=== PATIENT | female | born 1975 | race African-American/Black ===

== ENCOUNTER 2017-10-26 14:58 | Emergency (ER) | payer BC, OTHER, SELFPAY ==
[2017-10-26] MEDS ORDERED: Dexamethasone 4 mg/ml Vial ONE (16:13)
[2017-10-26] MEDS ORDERED: Acetaminophen 500 MG TAB ONE (16:13)
[2017-10-26] MEDS ORDERED: Ibuprofen 800 MG TAB ONE (16:13)
[2017-10-26] MEDS ORDERED: Dexamethasone 4 MG TAB ONE (16:14)
== END 2017-10-26 16:32 | disposition home or self-care (01) ==
LOC: MADERS 14:58
DX: M54.2 Cervicalgia (principal); J45.909 Unspecified asthma, uncomplicated; G47.30 Sleep apnea, unspecified
CPT/HCPCS: 99283; J1100; J8540

== ENCOUNTER 2018-05-29 17:04 | Emergency (ER) | payer SELFPAY ==
--- NOTE | 2018-05-29 19:04 | RAD ---
CHEST TWO VIEWS: 05/29/18 COMPARISON: 05/22/16. HISTORY: Pain. FINDINGS: Normal cardiac silhouette. The pulmonary vessels and hilum are normal. Costophrenic angles are clear. Patchy interstitial opacities. No consolidation or mass. No pneumothorax or osseous abnormalities. IMPRESSION: Patchy interstitial opacities. Correlate for edema or infiltrate. POS: [facility]
[2018-05-29] MEDS ORDERED: HYDROcodone/Acetaminophen 5/325 mg Tablet ONE (19:13)
== END 2018-05-29 19:24 | disposition home or self-care (01) ==
LOC: MADERS 17:04
DX: J18.9 Pneumonia, unspecified organism (principal); J45.909 Unspecified asthma, uncomplicated; G47.30 Sleep apnea, unspecified; D64.9 Anemia, unspecified
CPT/HCPCS: 71046

== ENCOUNTER 2018-09-22 15:39 | Emergency (ER) | payer SELFPAY ==
[2018-09-22 16:54] LABS: Bilirubin Negative (Negative); Blood, Urine Trace (Negative); Clarity Clear (Clear); Glucose, Urine (Dipstick) Negative (Negative); Leukocyte Negative (Negative); Nitrite Negative (Negative); Protein, Urine (Dipstick) Negative (Neg-Trace); Specific Gravity, Urine 1.025 (1.005-1.030); pH, Urine 6.5 (5.0-9.0)
[2018-09-22 17:02] LABS: ALT (SGPT) 11 U/L (8-55); AST (SGOT) 12 U/L (5-34); Albumin 3.6 g/dL (3.5-5.0); Alkaline Phosphatase 66 U/L (40-150); Anion Gap 13 mmol/L (10-20); BUN (Urea Nitrogen) 8 mg/dL (7.0-18.7); Bilirubin, Total 0.3 mg/dL (0.2-1.2); Calc. Creatinine Clearance 0 mL/min (70-130); Calcium 8.8 mg/dL (7.8-10.44); Carbon Dioxide 22 mmol/L (22-29); Chloride 109 mmol/L (98-107); Estimated GFR-MDRD 90; Globulin 3.4 g/dL (2.4-3.5); Glucose 92 mg/dL (70-105); Lipase 34 U/L (8-78); Potassium 3.8 mmol/L (3.5-5.1); Sodium 140 mmol/L (136-145)
[2018-09-22 17:08] LABS: Band 1 % (5-11); Eosinophils 2 % (0-10); Hemoglobin 11.5 g/dL (12.0-16.0); Lymphocytes 33 % (21-51); MDiff Complete? YES; Mean Corpuscular HGB CONC 31.8 g/dL (32.0-36.0); Mean Corpuscular Hemoglobin 28.7 pg (27.0-31.0); Mean Corpuscular Volume 90.2 fL (78.0-98.0); Mean Platelet Volume 7.8 fL (7.4-10.4); Metamyelocyte 2 % (0-0); Monocytes 7 % (0-10); Myelocyte 1 % (0-0); Neutrophil 35 % (42-75); PLT Morphology Comment Appears Adequate; Platelet Count 272 thou/uL (130-400); RBC Distribution Width 11.7 % (11.5-14.5); Reactive Lymphocytes 19 % (0-10); Red Blood Cell (RBC) Count 4.01 mill/uL (4.20-5.40); White Blood Cell (WBC) Count 6.2 thou/uL (4.8-10.8)
[2018-09-22 17:11] LABS: Bacteria/HPF Rare-Few HPF (None Seen); WBC/HPF 0-3 HPF (0-3)
--- NOTE | 2018-09-22 18:12 | RAD ---
TWO VIEWS CHEST: 09/22/18 HISTORY: Chest pain. PA and lateral views of the chest is obtained on 09/22/18. Comparison made to previous exam from 05/29/18. Two views chest demonstrates the lungs to be well aerated. No evidence of active intrathoracic diseas e seen. No evidence of effusions, pneumonia or pneumothorax seen. IMPRESSION: Normal two views chest. POS: [facility]
== END 2018-09-22 17:26 | disposition home or self-care (01) ==
LOC: MADERS 15:39
DX: B34.9 Viral infection, unspecified (principal); R07.89 Other chest pain; G47.30 Sleep apnea, unspecified; D64.9 Anemia, unspecified; J45.909 Unspecified asthma, uncomplicated
CPT/HCPCS: 36415; 71046; 80053; 81003; 81015; 83690; 85025; 87804; 93005

== ENCOUNTER 2019-01-24 14:44 | Outpatient (CLI) | payer BC ==
--- NOTE | 2019-01-24 16:58 | RAD ---
FOUR VIEWS LEFT KNEE: Date: 01-24-19 History: Left knee pain and swelling on and off. No history of trauma. FINDINGS: There is no fracture or dislocation involving the left knee. No joint space narrowing is seen. There is suggestion of a joint effusion in a suprapatellar location. IMPRESSION: Joint effusion without evidence of an acute osseous abnormality. MRI may be helpful for further evalu ation. POS: [facility]
== END 2019-01-24 14:45 | disposition home or self-care (01) ==
LOC: MADRAD 14:44
PROVIDERS: ATTEND General Practice
DX: M25.461 Effusion, right knee (principal); M25.462 Effusion, left knee

== ENCOUNTER 2019-12-23 17:23 | Emergency (ER) | payer MEDICAID, SELFPAY ==
[2019-12-23] MEDS ORDERED: Ketorolac Tromethamine 30 MG/ML VIAL ONE (18:18)
[2019-12-23] MEDS ORDERED: Ondansetron ODT 4 MG TAB ONE (18:18)
--- NOTE | 2019-12-23 18:50 | RAD ---
TWO VIEWS CERVICAL SPINE: 12/23/19 COMPARISON: None. HISTORY: Neck pain. FINDINGS: Two views of the cervical spine shows normal height and alignment of the vertebral bodies without fra cture or subluxation. The intervertebral discs are narrowed at C5-6 and C6-7 with moderate surroundin g osteophytes. No prevertebral soft tissue swelling is seen. IMPRESSION: Degenerative changes of the cervical spine without acute osseous abnormality. POS: [facility]
== END 2019-12-23 19:41 | disposition home or self-care (01) ==
LOC: MADERS 17:23
DX: S43.422A Sprain of left rotator cuff capsule, initial encounter (principal); M54.12 Radiculopathy, cervical region; I10 Essential (primary) hypertension; J45.909 Unspecified asthma, uncomplicated; G47.30 Sleep apnea, unspecified; D64.9 Anemia, unspecified
CPT/HCPCS: 72040; 96372; J1885; Q0162

== ENCOUNTER 2019-12-27 21:31 | Emergency (ER) | payer SELFPAY ==
[2019-12-27] MEDS ORDERED: Sodium Chloride 0.9% 1,000 ML ONE (22:02)
[2019-12-27] MEDS ORDERED: Morphine 4 MG/ML VIAL ONE (22:02)
[2019-12-27] MEDS ORDERED: Ondansetron PF 4 MG/2 ML Vial ONE (22:02)
--- NOTE | 2019-12-27 22:07 | CT ---
CT Stone Protocol HISTORY: Right flank pain. COMPARISON: 09/30/2018 and 08/06/2016 studies. FINDINGS: The lung bases are clear. The liver, spleen, pancreas and gallbladder regions appear unremarkable given the limitations of a no ncontrast study. Small hiatal hernia is noted. Right and left adrenal glands are normal. A tiny lower pole right renal calculus is seen and a faint mid pole nonobstructing calculus is noted. Several punctate left renal calculi are seen with a larger 6 mm calculus in the upper pole region. Right-sided hydronephrosis and hydroureter noted the c ourse of the distal right ureter is very difficult to follow there are multiple phleboliths present it is difficult to definitely establish a distal right ureteral calculus. There is no significant per iaortic or mesenteric adenopathy. CT of pelvis performed with out contrast enhancement: The appendix is normal. No adenopathy, mass or free fluid. IMPRESSION: 1. Bilateral renal calculi. 2. Mild right-sided hydronephrosis and dilatation the proximal right ureter, the distal ureters very difficult to follow I do not see a definitive ureteral calculus but there are multiple phleboliths within the pelvis potentially one of these is a small calculus or the stone may have passed.
[2019-12-27 22:22] LABS: Bilirubin Small (Negative); Blood, Urine Large (Negative); Clarity Turbid (Clear); Glucose, Urine (Dipstick) Negative (Negative); Leukocyte Trace (Negative); Nitrite Negative (Negative); Protein, Urine (Dipstick) 100 mg/dL (Neg-Trace); Urobilinogen 0.2 mg/dL (Less than 2)
[2019-12-27 22:24] LABS: RBC/HPF Greater than 50 HPF (0-3)
[2019-12-27 22:27] LABS: Bacteria/HPF 1+ HPF (None Seen); Squamous Epithelial 21-50 HPF (0-3)
[2019-12-27 22:51] LABS: Band 5 % (5-11); Hemoglobin 11.2 g/dL (12.0-16.0); Lymphocytes 32 % (21-51); MDiff Complete? YES; Mean Corpuscular HGB CONC 32.5 g/dL (32.0-36.0); Mean Corpuscular Hemoglobin 29.4 pg (27.0-31.0); Mean Corpuscular Volume 90.7 fL (78.0-98.0); Mean Platelet Volume 8.1 fL (7.4-10.4); Monocytes 10 % (0-10); Neutrophil 53 % (42-75); Platelet Count 242 thou/uL (130-400); Platelet Morphology Comment Appears Adequate; RBC Distribution Width 11.6 % (11.5-14.5); RBC Morphology Normal; Red Blood Cell (RBC) Count 3.79 mill/uL (4.20-5.40); White Blood Cell (WBC) Count 9.5 thou/uL (4.8-10.8)
[2019-12-27 22:55] LABS: Anion Gap 13 mmol/L (10-20); BUN (Urea Nitrogen) 10 mg/dL (7.0-18.7); Calc. Creatinine Clearance 0 mL/min (70-130); Calcium 8.6 mg/dL (7.8-10.44); Carbon Dioxide 22 mmol/L (22-29); Chloride 106 mmol/L (98-107); Estimated GFR-MDRD 68; Glucose 91 mg/dL (70-105); Potassium 3.8 mmol/L (3.5-5.1); Sodium 137 mmol/L (136-145)
[2019-12-27] MEDS ORDERED: HYDROcodone/Acetaminophen 5/325 mg Tablet ONE (23:06)
[2019-12-27] MEDS ORDERED: Ketorolac Tromethamine 30 MG/ML VIAL ONE (23:08)
[2019-12-27] MEDS ORDERED: Acetaminophen 325 MG TAB ONE (23:08)
[2019-12-27] MEDS ORDERED: Tamsulosin HCl 0.4 MG CAP ONE (23:08)
[2019-12-27] MEDS ORDERED: Promethazine 25 MG TAB ONE (23:08)
== END 2019-12-27 23:45 | disposition home or self-care (01) ==
LOC: MADERS 21:31
DX: N13.2 Hydronephrosis with renal and ureteral calculous obstruction (principal); R11.2 Nausea with vomiting, unspecified; J45.909 Unspecified asthma, uncomplicated; G47.30 Sleep apnea, unspecified; D64.9 Anemia, unspecified
CPT/HCPCS: 36415; 74176; 80048; 81003; 81015; 85025; 87086; 96361; 96374; 96375; J1885; J2270; J2405; J7050; Q0169

== ENCOUNTER 2019-12-29 09:11 | Emergency (ER) | payer SELFPAY ==
[2019-12-29 10:08] LABS: Bilirubin Negative (Negative); Blood, Urine Moderate (Negative); Clarity Hazy (Clear); Glucose, Urine (Dipstick) Negative (Negative); Leukocyte Negative (Negative); Nitrite Negative (Negative); Protein, Urine (Dipstick) Negative (Neg-Trace); Urobilinogen 0.2 mg/dL (Less than 2)
[2019-12-29 10:14] LABS: Bacteria/HPF Rare-Few HPF (None Seen); WBC/HPF 0-3 HPF (0-3)
--- NOTE | 2019-12-29 10:30 | ULT ---
EXAM: US Renal Rt Unilateral DATE: 12/29/2019 9:51 AM INDICATION: History of right renal stones and right-sided hydronephrosis COMPARISON: CT abdomen pelvis without contrast dated December 27, 2019 FINDING: There is mild right-sided hydronephrosis still present. The right kidney measures 12.4 x 5. 9 x 6.4 cm. Prevoid bladder volume was 49.8 cc. Postvoid bladder volume was 5.4 cc. IMPRESSION:Persistent mild right hydronephrosis.
[2019-12-29] MEDS ORDERED: Sodium Chloride 0.9% 1,000 ML ONE (10:33)
[2019-12-29] MEDS ORDERED: Morphine 4 MG/ML VIAL ONE (10:33)
[2019-12-29] MEDS ORDERED: Ondansetron PF 4 MG/2 ML Vial ONE (10:33)
[2019-12-29 10:49] LABS: Anion Gap 12 mmol/L (10-20); BUN (Urea Nitrogen) 11 mg/dL (7.0-18.7); Calc. Creatinine Clearance 0 mL/min (70-130); Calcium 8.8 mg/dL (7.8-10.44); Carbon Dioxide 24 mmol/L (22-29); Chloride 107 mmol/L (98-107); Estimated GFR-MDRD 80; Glucose 82 mg/dL (70-105); Potassium 3.8 mmol/L (3.5-5.1); Sodium 139 mmol/L (136-145)
[2019-12-29 10:51] LABS: Band 1 % (5-11); Hemoglobin 10.8 g/dL (12.0-16.0); Lymphocytes 15 % (21-51); MDiff Complete? YES; Mean Corpuscular HGB CONC 31.2 g/dL (32.0-36.0); Mean Corpuscular Hemoglobin 28.5 pg (27.0-31.0); Mean Corpuscular Volume 91.3 fL (78.0-98.0); Mean Platelet Volume 8.1 fL (7.4-10.4); Metamyelocyte 1 % (0-0); Monocytes 7 % (0-10); Neutrophil 62 % (42-75); Platelet Count 256 thou/uL (130-400); Platelet Morphology Comment Appears Adequate; RBC Distribution Width 11.7 % (11.5-14.5); Reactive Lymphocytes 14 % (0-10); White Blood Cell (WBC) Count 9.1 thou/uL (4.8-10.8)
--- NOTE | 2019-12-29 12:03 | CT ---
CT ABDOMEN NONCONTRAST CT PELVIS NONCONTRAST: (Urolithiasis protocol) DATE: 12/29/2019 HISTORY: 44-year-old female with obstructive uropathy and calculus of kidney COMPARISON: 12/27/2019 TECHNIQUE: IV injection of iodinated contrast media: None Oral contrast media: None FINDINGS: Other than for urolithiasis, the lack of IV and oral contrast limits the evaluation. There is a 10 x 5 x 9 mm calculus at a left renal upper pole calyx. There are multiple bilateral tiny punctate renal calculi in the upper, mid, and lower pole calyces. M ost of them are on the order of 1 mm in size, and are therefore best visualized on the coronal reconstructions rather than on the axial images. Again noted is the mild dilation of right calyces. This has not worsened. It may be minimally improve d. The right nephromegaly, right renal parenchymal edema, and the right perirenal edema, have minimally improved. No calculus is visualized in the ureters. However, because of the very large number of phleboliths throughout the pelvis, a distal ureteral tigist culus or a calculus at the UVJ, could easily be missed. No calculus within the urinary bladder. Within the limitations of a noncontrast scan, no abnormality is identified involving urinary bladder, appendix, abdominal aorta, pancreas, adrenals, liver, or spleen. No small bowel dilation. Small amount of free fluid in the cul-de-sac, greater than on the previous CT. IMPRESSION: 1. Evidence for right obstructive uropathy. 2. Mild right hydronephrosis may or may not have minimally improved. 3. The right perirenal edema has minimally improved. 4. Although an obstructing ureteral calculus is not definitely identified, the extremely large number of phleboliths could result in an easily missed tiny calculus in the distal ureter or UVJ. 5. Bilateral nephrolithiasis. Most of the renal calculi are on the order of 1 mm, and difficult to vi sualize on axial images. 6. There is a 10 mm calculus in the left kidney
--- NOTE | 2019-12-29 16:53 | RAD ---
Intravenous urogram: DATE: 12/29/2019 HISTORY: 44-year-old female with right sided abdominal pain. FINDINGS: The approximately 10 x 5 mm calculus at the left renal upper pole demonstrated on the recent CT, is v isible on the [facility] radiograph. Following IV contrast injection, bilaterally symmetrical nephrograms are noted on the first postcontr ast image obtained which is at 1 minute. There is excretion into bilateral renal collecting systems on the 5 minute image. The right renal collecting system is mild-moderately dilated. The right ureter is mildly dilated. The distal portion of the right ureter is not visualized on the 10 minute image, where there is an abrupt cut off of the contrast filled right ureter. This could be due to the particular stage of ureteral peristalsis when the radiographic image was obtained, but an obstructing lesion at the distal right ureter, such as transitional cell carcinoma, is a possibility. The distal left ureter is visualized filled with contrast, and there is even a left ureteral jet visualized in the bladder. There is no left-sided hydronephrosis. IMPRESSION: 1. Partial distal right ureteral obstruction. Possibility of urothelial carcinoma in the distal right ureter. Consider retrograde pyelogram. 2. Nephrolithiasis, including a 10 x 5 mm left renal upper pole calculus.
== END 2019-12-29 18:52 | disposition short-term general hospital (02) ==
LOC: MADERS 09:11
DX: N13.2 Hydronephrosis with renal and ureteral calculous obstruction (principal); R11.10 Vomiting, unspecified; D64.9 Anemia, unspecified; J45.909 Unspecified asthma, uncomplicated; Z79.899 Other long term (current) drug therapy
CPT/HCPCS: 74176; 74410; 76775; 80048; 81003; 81015; 85025; 96361; 96374; 96375; J2270; J2405; J7050

== ENCOUNTER 2020-02-11 14:52 | Emergency (ER) | payer BC, SELFPAY ==
[2020-02-11 16:42] LABS: Bilirubin Negative (Negative); Blood, Urine Negative (Negative); Clarity Clear (Clear); Glucose, Urine (Dipstick) Negative (Negative); Leukocyte Negative (Negative); Nitrite Negative (Negative); Protein, Urine (Dipstick) Negative (Neg-Trace); Urobilinogen 0.2 mg/dL (Less than 2)
[2020-02-11] MEDS ORDERED: Sodium Chloride 0.9% 1,000 ML ONE (16:46)
[2020-02-11] MEDS ORDERED: Pantoprazole 40 MG VIAL ONE ×2 (16:46)
[2020-02-11] MEDS ORDERED: Ketorolac Tromethamine 30 MG/ML VIAL ONE (16:46)
--- NOTE | 2020-02-11 17:09 | CT ---
CT of abdomen and pelvis: 02/11/2020 COMPARISON: 12/29/2019 HISTORY: Left flank pain for 2 weeks TECHNIQUE: Axial CT imaging at 5 mm intervals from lung bases through pubic symphysis without contras t. Coronal reformatted imaging obtained. FINDINGS: Lack of contrast media limits assessment of the viscera, bowel, vascular structures, and fo r lymphadenopathy. The visualized lung bases appear grossly unremarkable. No free intraperitoneal air or fluid is seen. The liver, gallbladder, spleen, pancreas, and adrenal glands are grossly unremarkable. Numerous punctate renal calculi are noted on the right. No evidence for obstructive uropathy is seen on the right. There are numerous calcifications within the pelvis, as seen on the prior examination. There are scattered punctate stones within the left kidney. There is also a 1.2 cm stone within the u pper pole of the left kidney, not significantly changed. No evidence for hydronephrosis or obstructive uropathy is appreciated on the left. Urinary bladder is decompressed and poorly evaluated . Limited assessment of the bowel without oral contrast media demonstrates no evidence for inflammatory change or obstruction. The appendix is unremarkable. Review of the osseous structures demonstrates no worrisome lytic or blastic bone lesion. There is lower lumbar spine degenerative change present. IMPRESSION: Bilateral nonobstructing renal calculi. No evidence for obstructive uropathy is appreciat ed on either side..
[2020-02-11 17:20] LABS: #Basophils 0.2 thou/uL (0.0-0.2); #Eosinphils 0.1 thou/uL (0.0-0.7); #Lymphocytes 2.8 thou/uL (1.20-3.40); #Monocytes 0.7 thou/uL (0.11-0.59); #Neutrophils 3.3 thou/uL (1.40-6.50); %Basophils 2.8 % (0.0-1.0); %Eosinophils 1.3 % (0.0-10.0); %Lymphocytes 39.2 % (21.0-51.0); %Monocytes 10.4 % (0.0-10.0); %Neutrophils 46.3 % (42.0-75.0); Hemoglobin 12.3 g/dL (12.0-16.0); Mean Corpuscular HGB CONC 30.7 g/dL (32.0-36.0); Mean Corpuscular Hemoglobin 27.9 pg (27.0-31.0); Mean Corpuscular Volume 90.9 fL (78.0-98.0); Mean Platelet Volume 8.9 fL (7.4-10.4); Platelet Count 282 thou/uL (130-400); RBC Distribution Width 11.9 % (11.5-14.5); White Blood Cell (WBC) Count 7.1 thou/uL (4.8-10.8)
[2020-02-11 17:35] LABS: ALT (SGPT) 15 U/L (8-55); AST (SGOT) 14 U/L (5-34); Albumin 3.9 g/dL (3.5-5.0); Alkaline Phosphatase 68 U/L (40-110); Anion Gap 14 mmol/L (10-20); BUN (Urea Nitrogen) 9 mg/dL (7.0-18.7); Bilirubin, Total 0.3 mg/dL (0.2-1.2); Calc. Creatinine Clearance 0 mL/min (70-130); Carbon Dioxide 23 mmol/L (22-29); Chloride 108 mmol/L (98-107); Estimated GFR-MDRD 86; Globulin 3.4 g/dL (2.4-3.5); Glucose 90 mg/dL (70-105); Lipase 21 U/L (8-78); Potassium 3.9 mmol/L (3.5-5.1); Protein, Total 7.3 g/dL (6.0-8.3); Sodium 141 mmol/L (136-145)
[2020-02-11 17:59] LABS: Troponin I Less than 0.010 ng/mL (< 0.028)
== END 2020-02-11 18:15 | disposition home or self-care (01) ==
LOC: MADERS 14:52
DX: K21.9 Gastro-esophageal reflux disease without esophagitis (principal); G47.30 Sleep apnea, unspecified; D64.9 Anemia, unspecified; Z79.899 Other long term (current) drug therapy
CPT/HCPCS: 36415; 74176; 80053; 81003; 83605; 83690; 84484; 85025; 93005; 96361; 96374; 96375; C9113; J1885; J7050

== ENCOUNTER 2020-02-18 09:40 | Emergency (ER) | payer SELFPAY ==
[2020-02-18 11:20] LABS: ALT (SGPT) 12 U/L (8-55); AST (SGOT) 10 U/L (5-34); Albumin 3.9 g/dL (3.5-5.0); Alkaline Phosphatase 63 U/L (40-110); Anion Gap 13 mmol/L (10-20); BUN (Urea Nitrogen) 8 mg/dL (7.0-18.7); Bilirubin, Total 0.3 mg/dL (0.2-1.2); Calc. Creatinine Clearance 0 mL/min (70-130); Calcium 9.2 mg/dL (7.8-10.44); Carbon Dioxide 26 mmol/L (22-29); Chloride 105 mmol/L (98-107); Estimated GFR-MDRD 89; Globulin 3.5 g/dL (2.4-3.5); Glucose 91 mg/dL (70-105); Lipase 14 U/L (8-78); Potassium 3.9 mmol/L (3.5-5.1); Protein, Total 7.4 g/dL (6.0-8.3); Sodium 140 mmol/L (136-145)
[2020-02-18 11:39] LABS: Band 1 % (5-11); Eosinophils 2 % (0-10); Hemoglobin 12.1 g/dL (12.0-16.0); Lymphocytes 28 % (21-51); MDiff Complete? YES; Mean Corpuscular Hemoglobin 28.5 pg (27.0-31.0); Mean Platelet Volume 8.4 fL (7.4-10.4); Monocytes 10 % (0-10); Neutrophil 58 % (42-75); Platelet Count 269 thou/uL (130-400); Platelet Morphology Comment Appears Adequate; RBC Distribution Width 11.9 % (11.5-14.5); Red Blood Cell (RBC) Count 4.23 mill/uL (4.20-5.40); White Blood Cell (WBC) Count 6.6 thou/uL (4.8-10.8)
--- NOTE | 2020-02-18 12:23 | RAD ---
EXAM: Chest PA and lateral: HISTORY: Chest pain COMPARISON: 09/22/2018, 09/18/2019 FINDINGS: Heart: Normal cardiac silhouette Aorta: Unremarkable Pulmonary vessels: Normal Costophrenic angles: Costophrenic angles are clear. Lungs: No consolidation or masses. Pneumothorax: No pneumothorax Osseous structures: No osseous abnormalities IMPRESSION: No acute cardiopulmonary process.
== END 2020-02-18 12:48 | disposition home or self-care (01) ==
LOC: MADERS 09:40
DX: M62.830 Muscle spasm of back (principal); J45.909 Unspecified asthma, uncomplicated; Z79.899 Other long term (current) drug therapy
CPT/HCPCS: 36415; 71046; 80053; 83690; 84484; 85025; 85379; 93005

== ENCOUNTER 2020-11-02 17:11 | Emergency (ER) | payer BC, SELFPAY ==
[2020-11-02] MEDS ORDERED: Ketorolac Tromethamine 30 MG/ML VIAL ONE (18:42)
[2020-11-02 18:48] LABS: Bilirubin Negative (Negative); Blood, Urine Trace (Negative); Glucose, Urine (Dipstick) Negative (Negative); Ketone, Urine Negative (Negative); Leukocyte Negative (Negative); Nitrite Negative (Negative); Protein, Urine (Dipstick) Negative (Neg-Trace); pH, Urine 5.5 (5.0-9.0)
[2020-11-02 18:49] LABS: Clarity Hazy (Clear); Specific Gravity, Urine 1.021 (1.002-1.036)
[2020-11-02 18:52] LABS: Bacteria/HPF Rare-Few HPF (None Seen); Mucous/LPF 1+ LPF (<2+); RBC/HPF 0-3 HPF (0-3); WBC/HPF None Seen HPF (0-3)
[2020-11-02 18:59] LABS: Hemoglobin 11.8 g/dL (12.0-16.0); Mean Corpuscular HGB CONC 32.2 g/dL (32.0-36.0); Mean Corpuscular Hemoglobin 29.2 pg (27.0-31.0); Mean Corpuscular Volume 90.5 fL (78.0-98.0); Mean Platelet Volume 8.4 fL (7.4-10.4); Platelet Count 268 thou/uL (130-400); RBC Distribution Width 11.6 % (11.5-14.5); Red Blood Cell (RBC) Count 4.04 mill/uL (4.20-5.40); White Blood Cell (WBC) Count 8.1 thou/uL (4.8-10.8)
[2020-11-02 19:00] LABS: ALT (SGPT) 12 U/L (8-55); AST (SGOT) 14 U/L (5-34); Albumin 3.7 g/dL (3.5-5.0); Alkaline Phosphatase 67 U/L (40-110); Anion Gap 13 mmol/L (10-20); BUN (Urea Nitrogen) 12 mg/dL (7.0-18.7); Bilirubin, Total 0.2 mg/dL (0.2-1.2); Calc. Creatinine Clearance 0 mL/min (70-130); Carbon Dioxide 25 mmol/L (22-29); Chloride 106 mmol/L (98-107); Globulin 3.5 g/dL (2.4-3.5); Glucose 94 mg/dL (70-105); Potassium 3.5 mmol/L (3.5-5.1); Protein, Total 7.2 g/dL (6.0-8.3); Sodium 140 mmol/L (136-145)
[2020-11-02 19:02] LABS: Pregnancy Test - Urine (BHCG) Negative (Negative); Pregu Control Background? CLEAR/WHITE (CLR/WHITE); Pregu Control Bar Appear? YES (CONTROL BAR); Specific Gravity 1.021 (1.002-1.036)
[2020-11-02 19:06] LABS: #Neutrophils 3.4 thou/uL (1.40-6.50); %Basophils 3.5 % (0.0-1.0); %Eosinophils 1.3 % (0.0-10.0); %Lymphocytes 42.1 % (21.0-51.0); %Monocytes 10.5 % (0.0-10.0); %Neutrophils 42.6 % (42.0-75.0)
[2020-11-02 19:07] LABS: #Basophils 0.3 thou/uL (0.0-0.2); #Eosinphils 0.1 thou/uL (0.0-0.7); #Lymphocytes 3.4 thou/uL (1.20-3.40); #Monocytes 0.9 thou/uL (0.11-0.59)
--- NOTE | 2020-11-02 19:29 | CT ---
Exam: Abdomen CT without contrast Pelvic CT without contrast HISTORY: Mid right posterior flank pain. Left flank pain. COMPARISON: 02/11/2020 FINDINGS: Abdomen CT: Lung bases:Clear Heart size: Normal heart size. No significant pericardial fluid Aorta: Normal caliber. No periaortic fat stranding Solid organs: Limited evaluation by the absence of IV contrast. Grossly no solid organ abnormality Lymph nodes: No gastrohepatic, retrocrural or periportal lymphadenopathy Gallbladder: Contracted Mesentery: No mass, lymphadenopathy, free air or free fluid Kidneys: Bilateral nonobstructing intrarenal calculi. There is also a hyperdensity involving the left and right renal pyramids. Largest calculus in the left intrarenal collecting system measures 1.1 cm. Bilaterally no obstructive uropathy. Alimentary canal: Limited evaluation by the lack of oral contrast. Ingested material in the stomach. Normal caliber small bowel loops. Normal ileocecal junction. Normal caliber appendix. Decompressed colon with scattered fecal material. CT PELVIS: No mass, adenopathy, free air or free fluid. Surgically absent uterus Urinary bladder: Unremarkable. Osseous structures: No lytic or blastic lesions IMPRESSION: 1. No evidence of obstructive uropathy 2. Bilateral nonobstructing intrarenal calculi. 3. Normal caliber.
== END 2020-11-02 19:48 | disposition home or self-care (01) ==
LOC: MADERS 17:11
DX: M54.5 Low back pain (principal); J45.909 Unspecified asthma, uncomplicated; G47.30 Sleep apnea, unspecified; D64.9 Anemia, unspecified; Z79.899 Other long term (current) drug therapy
CPT/HCPCS: 36415; 74176; 80053; 81003; 81015; 81025; 85025; 96372; J1885

== ENCOUNTER 2020-11-06 23:11 | Emergency (ER) | payer MEDICAID, SELFPAY ==
[2020-11-06 23:43] LABS: Bilirubin Negative (Negative); Blood, Urine Small (Negative); Clarity Clear (Clear); Glucose, Urine (Dipstick) Negative (Negative); Ketone, Urine Negative (Negative); Leukocyte Negative (Negative); Nitrite Negative (Negative); Protein, Urine (Dipstick) Negative (Neg-Trace); Urobilinogen 0.2 mg/dL (Less than 2); pH, Urine 5.5 (5.0-9.0)
[2020-11-06 23:51] LABS: RBC/HPF 0-3 HPF (0-3); Squamous Epithelial 0-3 HPF (0-3); Transitional Epithelial 0-3 HPF (None Seen); WBC/HPF 0-3 HPF (0-3)
[2020-11-06 23:52] LABS: Bacteria/HPF Rare-Few HPF (None Seen); Mucous/LPF 2+ LPF (<2+)
--- NOTE | 2020-11-07 07:33 | CT ---
PRELIMINARY REPORT/[facility]/EMERGENCY AFTER HOURS PROCEDURE: EXAM: CT Abdomen and Pelvis Without Intravenous Contrast CLINICAL HISTORY: HX OF STONES RT SIDE PAIN TECHNIQUE: Axial computed tomography images of the abdomen and pelvis without intravenous contrast. CONTRAST: None. COMPARISON: None provided. FINDINGS: LUNG BASES: No basilar airspace consolidation or pleural effusion. LIVER: Unremarkable. GALLBLADDER AND BILE DUCTS: Unremarkable. No calcified stone. No ductal dilation. PANCREAS: Unremarkable. SPLEEN: Unremarkable. ADRENAL GLANDS: Unremarkable. KIDNEYS, URETERS, AND BLADDER: Bilateral renal stones are present, nonobstructive. Largest is seen wi thin the upper pole of the left kidney measuring approximately 8 x 4 mm. No discrete ureteral stone identified. However, numerous calcifications are noted within the pelvis, which are most likely phleb oliths, and may obscure a tiny stone in the distal ureters. No urinary tract dilatation. No bladder stones visualized. STOMACH AND BOWEL: No obstruction. No wall thickening. No CT evidence of colitis or acute diverticuli tis. APPENDIX: No CT evidence for appendicitis. PERITONEUM: No free fluid. No free air. LYMPH NODES: No lymphadenopathy. REPRODUCTIVE: Patient is status post hysterectomy. VASCULATURE: No aortic aneurysm. ABDOMINAL WALL AND SOFT TISSUES: Unremarkable. BONES: No acute or aggressive skeletal abnormalities. Degenerative changes are noted predominantly at L5-S1. IMPRESSION: Bilateral nephrolithiasis. No urinary tract dilatation. Numerous phleboliths within the pelvis may obscure a small distal ureterolith. No other acute intra-abdominal or pelvic abnormality. ELECTRONICALLY SIGNED BY: Dhruv Gil DO Nov 07, 2020 12:43:24 AM BEDSPREAD INSPECTOR FINAL REPORT CT OF THE ABD AND PELVIS WITHOUT CONTRAST: DATE: 11/07/2020. COMPARISON: 11/02/2020. HISTORY: History of renal stone disease, right-sided pain radiating anteriorly. FINDINGS: I agree with the preliminary report. The lack of contrast limits assessment of the viscera, bowel, v ascular structures, and evaluation for lymphadenopathy. The imaged lung bases are unremarkable. No free intraperitoneal air or fluid is seen. Limited assessm ent of the liver, gallbladder, and spleen unremarkable. Pancreas and adrenal glands appear grossly unremarkable. Multiple stable nonobstructing intrarenal calculi are noted. The largest stone on the l eft is in the mid pole/upper pole region and measures 9 mm. Numerous additional punctate calculi are noted bilaterally, right more numerous than left. No evidence for hydronephrosis or obstructive u ropathy. Numerous pelvic calcifications suggest phleboliths, which could obscure a distal ureteral stone. Limited evaluation of the bowel without contrast media demonstrates no evidence for inflammatory ruiz ge or obstruction. There is a small fat-containing umbilical hernia present. Appendix is grossly unremarkable. There is degenerative change within the lower lumbar spine with disc space narrowing and bilateral fa cet hypertrophy at the L5-S1 level and to a lesser degree, the L4-5 level. IMPRESSION: Intrarenal calculi with no evidence for obstructive uropathy. Transcribed Date/Time: 11/07/2020 7:52 AM
== END 2020-11-07 01:30 | disposition home or self-care (01) ==
LOC: MADERS 23:11
DX: N20.2 Calculus of kidney with calculus of ureter (principal); M19.90 Unspecified osteoarthritis, unspecified site; J45.909 Unspecified asthma, uncomplicated; Z79.899 Other long term (current) drug therapy
CPT/HCPCS: 74176; 81003; 81015

== ENCOUNTER 2020-12-25 09:54 | Emergency (ER) | payer SELFPAY ==
[2020-12-25 10:52] LABS: Bilirubin Negative (Negative); Blood, Urine Small (Negative); Clarity Clear (Clear); Glucose, Urine (Dipstick) Negative (Negative); Ketone, Urine 15 mg/dL (Negative); Leukocyte Negative (Negative); Nitrite Negative (Negative); Protein, Urine (Dipstick) Negative (Neg-Trace); Urobilinogen 0.2 mg/dL (Less than 2)
[2020-12-25 10:59] LABS: Bacteria/HPF Rare-Few HPF (None Seen); WBC/HPF 0-3 HPF (0-3)
[2020-12-25 11:13] LABS: ALT (SGPT) 10 U/L (8-55); AST (SGOT) 14 U/L (5-34); Alkaline Phosphatase 66 U/L (40-110); Anion Gap 13 mmol/L (10-20); BUN (Urea Nitrogen) 12 mg/dL (7.0-18.7); Bilirubin, Total 0.4 mg/dL (0.2-1.2); Calc. Creatinine Clearance 0 mL/min (70-130); Calcium 8.9 mg/dL (7.8-10.44); Carbon Dioxide 28 mmol/L (22-29); Chloride 103 mmol/L (98-107); Globulin 3.8 g/dL (2.4-3.5); Glucose 79 mg/dL (70-105); Lipase 14 U/L (8-78); Potassium 3.7 mmol/L (3.5-5.1); Protein, Total 7.8 g/dL (6.0-8.3); Sodium 140 mmol/L (136-145)
[2020-12-25 11:27] LABS: Eosinophils 1 % (0-10); Hemoglobin 12.3 g/dL (12.0-16.0); Hypochromia SLIGHT = 6-15 cells (100X) (0-5/hpf); Lymphocytes 39 % (21-51); MDiff Complete? YES; Mean Corpuscular HGB CONC 32.3 g/dL (32.0-36.0); Mean Corpuscular Hemoglobin 28.9 pg (27.0-31.0); Mean Corpuscular Volume 89.4 fL (78.0-98.0); Mean Platelet Volume 8.2 fL (7.4-10.4); Monocytes 10 % (0-10); Neutrophil 50 % (42-75); Platelet Count 279 thou/uL (130-400); Platelet Morphology Comment Appears Adequate; Red Blood Cell (RBC) Count 4.26 mill/uL (4.20-5.40); White Blood Cell (WBC) Count 5.1 thou/uL (4.8-10.8)
[2020-12-25] MEDS ORDERED: Ketorolac Tromethamine 30 MG/ML VIAL ONE (11:50)
== END 2020-12-25 12:20 | disposition home or self-care (01) ==
LOC: MADERS 09:54
DX: M54.5 Low back pain (principal); M19.90 Unspecified osteoarthritis, unspecified site; J45.909 Unspecified asthma, uncomplicated; Z87.442 Personal history of urinary calculi; Z79.899 Other long term (current) drug therapy
CPT/HCPCS: 36415; 80053; 81003; 81015; 83690; 85025; 96372; 99283; J1885

== ENCOUNTER 2021-06-16 08:02 | Emergency (ER) | payer BC, MEDICAID | END 2021-06-16 08:40 | disposition home or self-care (01) | LOC: MADERS 08:02 | DX: M54.5 Low back pain (principal); M19.90 Unspecified osteoarthritis, unspecified site; J45.909 Unspecified asthma, uncomplicated; Z87.891 Personal history of nicotine dependence; Z87.442 Personal history of urinary calculi | CPT/HCPCS: 99281 ==

== ENCOUNTER 2023-02-10 10:34 | Outpatient (CLI) | payer BC, MEDICAID, SELFPAY | END 2023-02-10 10:35 | disposition home or self-care (01) | LOC: MADRAD 10:34 | PROVIDERS: ATTEND Registered Nurse | DX: Z00.00 Encounter for general adult medical examination without abnormal findings (principal); M54.2 Cervicalgia; R05.9 Cough, unspecified; K21.9 Gastro-esophageal reflux disease without esophagitis; M47.812 Spondylosis without myelopathy or radiculopathy, cervical region; M50.30 Other cervical disc degeneration, unspecified cervical region | CPT/HCPCS: 70360; 71046; 72040 ==

== ENCOUNTER 2023-10-09 11:45 | Emergency (ER) | payer OTHER ==
[2023-10-09 12:48] LABS: Bilirubin Negative (Negative); Blood, Urine Moderate (Negative); Clarity Clear (Clear); Glucose, Urine (Dipstick) Negative (Negative); Ketone, Urine Negative (Negative); Leukocyte Negative (Negative); Nitrite Negative (Negative); Protein, Urine (Dipstick) Negative (Neg-Trace); Urobilinogen 0.2 mg/dL (Less than 2); pH, Urine 5.5 (5.0-9.0)
[2023-10-09 12:49] LABS: Bacteria/HPF Rare-Few HPF (None Seen); CAUTI Indications for Culture Pelvic or flank pain; Specific Gravity, Urine 1.023 (1.002-1.036); WBC/HPF 0-3 HPF (0-3)
[2023-10-09 12:50] LABS: Urine Culture Reflex No No
[2023-10-09 12:55] LABS: Pregnancy Test - Urine (BHCG) Negative (Negative); Pregu Control Background? CLEAR/WHITE (CLR/WHITE); Pregu Control Bar Appear? YES (CONTROL BAR); Specific Gravity 1.023 (1.002-1.036)
== END 2023-10-09 13:10 | disposition home or self-care (01) ==
LOC: MADERS 11:45
DX: R59.0 Localized enlarged lymph nodes (principal); M19.90 Unspecified osteoarthritis, unspecified site
CPT/HCPCS: 81001; 81025; 99284

== ENCOUNTER 2024-02-06 10:05 | Emergency (ER) | payer BC ==
[2024-02-06 11:01] LABS: Bilirubin Negative (Negative); Blood, Urine Small (Negative); Glucose, Urine (Dipstick) Negative (Negative); Ketone, Urine 15 mg/dL (Negative); Leukocyte Negative (Negative); Nitrite Negative (Negative); Protein, Urine (Dipstick) Negative (Neg-Trace); Specific Gravity, Urine 1.025 (1.005-1.030); Urobilinogen 0.2 mg/dL (Less than 2); pH, Urine 5.5 (5.0-9.0)
[2024-02-06 11:02] LABS: Clarity Hazy (Clear)
[2024-02-06 11:08] LABS: Bacteria/HPF Rare-Few HPF (None Seen); CAUTI Indications for Culture Dysuria,urgency,freq; RBC/HPF 0-3 HPF (0-3); WBC/HPF None Seen HPF (0-3)
[2024-02-06 11:09] LABS: Mucous/LPF 2+ LPF (<2+); Urine Culture Reflex No No
[2024-02-07 22:40] LABS: SARS-CoV-2 N1 Negative; SARS-CoV-2 N2 Negative; SARS-CoV-2 RNAse P1 Positive; SARS-CoV-2 RNAse P2 Positive
== END 2024-02-06 12:30 | disposition home or self-care (01) ==
LOC: MADERS 10:05
DX: J06.9 Acute upper respiratory infection, unspecified (principal); R10.9 Unspecified abdominal pain
CPT/HCPCS: 71045; 81001; 87081; 87430; 87635; 87804

== ENCOUNTER 2024-02-10 22:45 | Emergency (ER) | payer BC ==
[2024-02-10] MEDS ORDERED: fentaNYL 50 mcg/mL 1 mL Vial ONE (23:21)
[2024-02-11 00:03] LABS: Hematocrit 32.9 % (36.0-47.0); Hemoglobin 10.7 g/dL (12.0-16.0); Mean Corpuscular HGB CONC 32.6 g/dL (32.0-36.0); Mean Corpuscular Hemoglobin 29.2 pg (27.0-31.0); Mean Corpuscular Volume 89.6 fl (78.0-98.0); Mean Platelet Volume 8.6 fL (7.4-10.4); Platelet Count 262 10x3/uL (130-400); RBC Distribution Width 11.8 % (11.5-14.5); Red Blood Cell (RBC) Count 3.67 mill/uL (4.20-5.40)
[2024-02-11 00:21] LABS: Band 1 % (5-11); Lymphocytes 26 % (21-51); MDiff Complete? YES; Monocytes 4 % (0-10); Neutrophil 68 % (42-75); Platelet Adequacy Comment Appears Adequate
[2024-02-11 00:25] LABS: ALT (SGPT) 16 U/L (8-55); AST (SGOT) 12 U/L (5-34); Albumin 3.6 g/dL (3.5-5.0); Alkaline Phosphatase 61 U/L (40-110); Anion Gap 12 mmol/L (10-20); BUN (Urea Nitrogen) 12 mg/dL (7.0-18.7); Bilirubin, Total 0.2 mg/dL (0.2-1.2); Calc. Creatinine Clearance 0 mL/min (70-130); Calcium 8.8 mg/dL (7.8-10.44); Carbon Dioxide 22 mmol/L (22-29); Chloride 108 mmol/L (98-107); Estimated GFR 93; Globulin 2.9 g/dL (2.4-3.5); Glucose 104 mg/dL (70-105); Potassium 3.7 mmol/L (3.5-5.1); Protein, Total 6.5 g/dL (6.0-8.3); Sodium 138 mmol/L (136-145)
[2024-02-11] MEDS ORDERED: Mineral Oil ENEMA ONE ×2 (00:27→02:12)
[2024-02-11] MEDS ORDERED: fentaNYL 50 mcg/mL 1 mL Vial ONE (02:11)
== END 2024-02-11 06:50 | disposition home or self-care (01) ==
LOC: MADERS 22:45
DX: K62.89 Other specified diseases of anus and rectum (principal); K59.00 Constipation, unspecified; D64.9 Anemia, unspecified; D72.829 Elevated white blood cell count, unspecified
CPT/HCPCS: 74177; 80053; 85025; 86140; 96374; 96376; J3010

== ENCOUNTER 2025-10-05 13:52 | Emergency (ER) | payer BC ==
[2025-10-05 15:30] LABS: Glucose, Urine (Dipstick) Negative (Negative); Leukocyte Negative (Negative); Protein, Urine (Dipstick) Negative (Neg-Trace); Specific Gravity, Urine 1.015 (1.005-1.030)
[2025-10-05 15:33] LABS: Pregnancy Test - Urine (BHCG) Negative (Negative); Pregu Control Background? CLEAR/WHITE (CLR/WHITE); Pregu Control Bar Appear? YES (CONTROL BAR)
[2025-10-05 15:36] LABS: Bacteria/HPF 3+ HPF (None Seen); CAUTI Indications for Culture Pelvic or flank pain
[2025-10-05 15:37] LABS: Urine Culture Reflex No No
[2025-10-05] MEDS ORDERED: Ketorolac Tromethamine 30 MG (1 mL) VIAL ONE (17:13)
== END 2025-10-05 17:25 | disposition home or self-care (01) ==
LOC: MADERS 13:52
DX: N20.1 Calculus of ureter (principal); N39.0 Urinary tract infection, site not specified
CPT/HCPCS: 81001; 81025; 96374; J1885